=== PATIENT | male | born 1990 | race African-American/Black ===

== ENCOUNTER 2017-05-15 18:48 | Emergency (ER) | payer SELFPAY ==
[2017-05-15 18:53] VITALS: BP 123/91; BMI 20.9
--- NOTE | 2017-05-15 20:50 | DR.GENAD ---
HPI - PCP Primary Care Physician: NFD - Complaint/Symptoms Chief Complaint Doctors Comments: Patient admits to vomiting most of the day not associated with blood. He denies diarrhea. Chief Complaint:: "Yesterday my stomach was feeling a little weird, but today I woke up and have not been able to keep anything down. I have been throwing up everything. My ribs have been hurting as well." - Source History Provided: Patient - Mode of Arrival Mode of Arrival: Ambulatory - Timing Onset of Chief Complaint: 05/14/17 PMH - PMH Past Medical History: No Past Surgical History: No - Family History History of Family Medical Conditions: No Family Medical History: Hypertension - Social History Does patient currently use any type of tobacco product: No Have you used tobacco products in the last 12 months: No Type of Tobacco Use: None Does any household member use tobacco: No Alcohol Use: None Do you use any recreational Drugs:: No Lives With: Family Lives Where: Home - infectious screening In the last 2 months have you had wt loss of >10#?: NO Have you had fever, night sweats or hemotysis?: No Have you traveled outside the country in the last 6 months?: No Isolation: Standard ROS - Review of Systems Constitutional: No Symptoms Reported Eyes: No Symptoms Reported ENTM: No Symptoms Reported Respiratoy: No Symptoms Reported Cardiovascular: No Symptoms Reported Gastrointestinal/Abdominal: Abdominal Pain, Nausea, Vomiting Neurological: No Symptoms Reported Musculoskeletal: No Symptoms Reported Integumentary: No Symptoms Reported Hematologic/Lymphatic: No Symptoms Reported Endocrine: No Symptoms Reported Psychiatric: No Symptoms Reported, Anxiety All Other Systems: Reviewed and Negative PE - Vital Signs Vitals: Temperature 98.4 F Pulse Rate 72 Respiratory Rate 18 Blood Pressure 123/91 O2 Sat by Pulse Oximetry 99 - General Limitations: No Limitations General Appearance: Alert, In No Apparent Distress - Head Head Exam: Normal Inspection, Atraumatic - Eyes Eye exam: Normal Appearance, PERRL, EOMI - ENT ENT Exam: Normal Exam External Ear Exam: Normal External Inspection TM/Canal Exam: Bilateral Normal Nose Exam: Normal Nose Exam Mouth Exam: Normal Inspection Throat Exam: Normal Inspection - Neck Neck Exam: Normal Inspection - Chest Chest Inspection: Normal Inspection - Respiratory Respiratory Exam: Normal Lung Sounds Bilat Respiratory Exam: Bilateral Clear to Auscultation - Cardiovascular Cardiovascular Exam: Regular Rate, Normal Rhythm - Abdominal Exam Abdominal Exam: Normal Inspection, Normal Bowel Sounds Abdominal Tenderness: negative: RUQ, RLQ, LUQ, LLQ, Epigastrium, Suprapubic, Diffuse, Mild, Moderate, Severe, Other - Extremities Extremities Exam: Normal Inspection, Full ROM - Back Back Exam: Normal Inspection - Neurologic Neurological Exam: Alert, Oriented X3, CN II-XII Intact - Psychiatric Psychiatric Exam: Normal Affect - Skin Skin Exam: Warm, Dry, Intact, Other (multiple tatoos on body) Course - Reevaluation 1st: Improved ROR - Labs Reviewed Laboratory Results Reviewed?: Yes (strep positive) Result Diagrams: 05/15/17 21:00 05/15/17 21:00 Laboratory: WBC 8.7 X10^3/uL (3.6-10.0) 05/15/17 21:00 RBC 5.40 X10^6/uL (4.7-6.0) 05/15/17 21:00 Hgb 17.1 g/dL (13.5-18.0) 05/15/17 21:00 Hct 49.2 % (42.0-54.0) 05/15/17 21:00 MCV 91.0 fL (80.0-100.0) 05/15/17 21:00 MCH 31.7 pg (27.0-34.0) 05/15/17 21:00 MCHC 34.8 g/dL (33.0-35.0) 05/15/17 21:00 RDW 13.0 % (11.6-16.5) 05/15/17 21:00 Plt Count 271 X10^3/uL (150.0-450.0) 05/15/17 21:00 MPV 8.1 fL (7.4-11.0) 05/15/17 21:00 Neut % 87.8 % (42.0-75.0) H 05/15/17 21:00 Lymph % 6.1 % (21.0-51.0) L 05/15/17 21:00 [place] % 5.6 % (0.0-13.0) 05/15/17 21:00 Eos % 0.0 % (0.9-2.9) L 05/15/17 21:00 Baso % 0.5 % (0.2-1.0) 05/15/17 21:00 Neut # 7.6 x10^3/uL (2.2-4.8) H 05/15/17 21:00 Lymph # 0.5 X10^3/uL (1.3-2.9) L 05/15/17 21:00 [place] # 0.5 x10^3/uL (0.3-0.8) 05/15/17 21:00 Eos # 0.0 x10^3/uL (0.0-0.2) 05/15/17 21:00 Baso # 0.0 X10^3/uL (0.0-0.1) 05/15/17 21:00 Absolute Nucleated RBC 0.0 /100WBC 05/15/17 21:00 Sodium 138 mmol/L (136-145) 05/15/17 21:00 Corrected Sodium TNP 05/15/17 21:00 Potassium 4.4 mmol/L (3.5-5.1) 05/15/17 21:00 Chloride 100 mmol/L (98-107) 05/15/17 21:00 Carbon Dioxide 29.6 mmol/L (21-32) 05/15/17 21:00 BUN 23 mg/dL (7-18) H 05/15/17 21:00 Creatinine 1.44 mg/dL (0.70-1.30) H 05/15/17 21:00 Est GFR (MDRD) Af Amer > 60 (>60) 05/15/17 21:00 Est GFR (MDRD) Non-Af > 60 (>60) 05/15/17 21:00 Glucose 103 mg/dL (65-99) H 05/15/17 21:00 Calcium 10.1 mg/dL (8.5-10.1) 05/15/17 21:00 Corrected Calcium TNP 05/15/17 21:00 Total Bilirubin 2.50 mg/dL (0.2-1.0) H 05/15/17 21:00 AST 48 Units/L (15-37) H 05/15/17 21:00 ALT 48 Units/L (12-78) 05/15/17 21:00 Alkaline Phosphatase 73 Units/L (46-116) 05/15/17 21:00 C-Reactive Protein 2.20 mg/L (0-3.0) 05/15/17 21:00 Total Protein 8.1 g/dL (6.4-8.2) 05/15/17 21:00 Albumin 4.9 g/dL (3.4-5.0) 05/15/17 21:00 Globulin 3.2 g/dL (2.5-4.5) 05/15/17 21:00 Albumin/Globulin Ratio 1.5 Ratio (1.1-2.1) 05/15/17 21:00 Streptococcus Screen Positive (NEGATIVE) A 05/15/17 21:20 - Diagnosis Discharge Problem: Dehydration, mild, Strep pharyngitis, Liver cell injury - Discharge Plan Condition: Stable - Follow ups/Referrals Follow ups/Referrals: NFD,None [Primary Care Provider] - 3 days - Instructions
[2017-05-15] MEDS ORDERED: NS 1000 ML 1,000 ML IV ONE (20:54)
[2017-05-15] MEDS ORDERED: PHENERGAN INJ 25 MG IV ONE (20:54)
[2017-05-15] MEDS ORDERED: PHENERGAN INJ 25 MG ONE (21:04)
[2017-05-15] MEDS ORDERED: NS 1000 ML 1,000 ML ONE (21:04)
[2017-05-15 21:10] LABS: BASOPHILS % (AUTO) 0.5 % (0.2-1.0); HEMATOCRIT 49.2 % (42.0-54.0); HEMOGLOBIN 17.1 g/dL (13.5-18.0); LYMPHOCYTES # (AUTO) 0.5 X10^3/uL (1.3-2.9); LYMPHOCYTES % (AUTO) 6.1 % (21.0-51.0); MEAN CORPUSCULAR HEMOGLOBIN 31.7 pg (27.0-34.0); MEAN CORPUSCULAR HGB CONC 34.8 g/dL (33.0-35.0); MEAN PLATELET VOLUME 8.1 fL (7.4-11.0); MONOCYTES # (AUTO) 0.5 x10^3/uL (0.3-0.8); MONOCYTES % (AUTO) 5.6 % (0.0-13.0); NEUTROPHILS # (AUTO) 7.6 x10^3/uL (2.2-4.8); NEUTROPHILS % (AUTO) 87.8 % (42.0-75.0); PLATELET COUNT 271 X10^3/uL (150.0-450.0); WHITE BLOOD COUNT 8.7 X10^3/uL (3.6-10.0)
[2017-05-15 21:20] LABS: ALANINE AMINOTRANSFERASE 48 Units/L (12-78); ALBUMIN 4.9 g/dL (3.4-5.0); ALKALINE PHOSPHATASE 73 Units/L (46-116); ASPARTATE AMINO TRANSFERASE 48 Units/L (15-37); BLOOD UREA NITROGEN 23 mg/dL (7-18); CALCIUM 10.1 mg/dL (8.5-10.1); CARBON DIOXIDE 29.6 mmol/L (21-32); CHLORIDE 100 mmol/L (98-107); CREATININE 1.44 mg/dL (0.70-1.30); SODIUM 138 mmol/L (136-145); TOTAL PROTEIN 8.1 g/dL (6.4-8.2); eGFR BLACK RACES > 60 (>60); eGFR NON BLACK RACES > 60 (>60)
== END 2017-05-15 22:46 | disposition home or self-care (01) ==
LOC: ER 19:00
DX: E86.0 Dehydration (principal); K76.9 Liver disease, unspecified; J02.0 Streptococcal pharyngitis
CPT/HCPCS: 36415; 80053; 85025; 86140; 87880; 96365; 96374; 99283; A4222; J2550